=== PATIENT | female | born 1940 | race Hispanic/Latino ===

== ENCOUNTER 2022-09-06 19:03 | Emergency (ER) | payer SELFPAY ==
[~2022-09-06] VITALS: Ht 165.1 cm; Wt 81.6 kg
[2022-09-06 22:12] VITALS: BP 142/65
== END 2022-09-06 22:11 | disposition home or self-care (01) ==
LOC: ER 19:11
DX: S01.111A Laceration without foreign body of right eyelid and periocular area, initial encounter (principal); M79.621 Pain in right upper arm; M25.562 Pain in left knee; W01.0XXA Fall on same level from slipping, tripping and stumbling without subsequent striking against object, initial encounter; Y92.89 Other specified places as the place of occurrence of the external cause; I10 Essential (primary) hypertension
CPT/HCPCS: 70450; 70486; 72125; 99283